=== PATIENT | male | born 1970 | race Caucasian/White ===

== ENCOUNTER → 2016-08-03 | Outpatient (CLI) | payer BC ==
[2016-08-03 11:29] LABS: ALT/SGPT 39 U/L (12-78); AST/SGOT 21 U/L (15-37); BLOOD UREA NITROGEN 20 mg/dl (7-18); CALCIUM 8.7 mg/dl (8.5-10.1); CARBON DIOXIDE 29 mmol/L (21-32); CHLORIDE 105 mmol/L (98-107); CHOLESTEROL 199 mg/dl (0-200); GLUCOSE 110 mg/dl (70-99); POTASSIUM 3.8 mmol/L (3.5-5.1); SODIUM 141 mmol/L (136-145)
[2016-08-03 11:32] LABS: ALB/GLOB RATIO 1.4 (0.9-2); ALKALINE PHOSPHATASE 48 U/L (45-117); CHOLESTEROL/HDL RATIO 5.4; HDL CHOLESTEROL 37 mg/dl; LDL CHOLESTEROL CALCULATED 122 mg/dl; TRIGLYCERIDES 198 mg/dl (0-150); VERY LOW DENSITY LIPOPROT CALC 40 mg/dl
== END | disposition home or self-care (01) ==
LOC: C.LABBC 08:28
PROVIDERS: ATTEND Family Medicine
DX: Z13.220 Encounter for screening for lipoid disorders (principal); I10 Essential (primary) hypertension

== ENCOUNTER → 2016-09-25 | Outpatient (CLI) | payer BC ==
[~2016-09-25] VITALS: Ht 180.3 cm; Wt 125.4 kg
[2016-09-25 15:08] VITALS: BP 150/83; PULSE 77; Ht 180.3 cm; Wt 125.4 kg
== END | disposition home or self-care (01) ==
LOC: C.NEUR 14:36
PROVIDERS: ATTEND Internal Medicine Pulmonary Disease
DX: R53.83 Other fatigue (principal); R06.83 Snoring; G47.9 Sleep disorder, unspecified

== ENCOUNTER → 2016-10-08 | Outpatient (CLI) | payer BC ==
--- NOTE | 2016-10-13 15:12 | POLYSOMNOGRAPH REPORT ---
CLINICAL DATA: A 45-year-old male with BMI of 38.[address] Smith and Dr. Anthony with symptoms of sleep apnea including loud snoring, fragmented sleep architecture, excessive daytime sleepiness and a crowded airway. On the evening of 10/08/2016, a home sleep apnea test was performed using a Maximus type 3 monitor. RECORDING RESULTS: Total recording time was 10 hours. The patient's estimated sleep time and patient monitoring time was 8 hours. RESPIRATORY DATA: Moderate sleep apnea was documented. The STACI was 27.3. There were 18 obstructive and 16 mixed apneic episodes. There were 114 hypopneic episodes. The longest respiratory event was 45 seconds. OXIMETRY DATA: Very transient nocturnal hypoxemia was seen. Oxygen charles was 86%. Mean saturation was 94%. Time below 89% was 2 minutes. HEART RATE DATA: Heart rates ranged from 42 to 54 beats per minute. SNORING DATA: Snoring was recorded throughout the night. IMPRESSION: Moderate sleep apnea/hypopnea with an STACI of 27.3. RECOMMENDATIONS: The patient may benefit from use of an oral appliance or repeat sleep study with CPAP. Clinical correlation is needed. ALEXID
== END | disposition home or self-care (01) ==
LOC: C.NEUR 11:03
PROVIDERS: ATTEND Internal Medicine Pulmonary Disease
DX: G47.30 Sleep apnea, unspecified (principal); R53.83 Other fatigue; R06.83 Snoring

== ENCOUNTER → 2016-10-16 | Outpatient (CLI) | payer BC ==
[~2016-10-16] VITALS: Ht 180.3 cm; Wt 122.7 kg
[2016-10-16 15:33] VITALS: BP 144/80; PULSE 75; Ht 180.3 cm; Wt 122.7 kg
== END | disposition home or self-care (01) ==
LOC: C.NEUR 13:48
PROVIDERS: ATTEND Internal Medicine Pulmonary Disease
DX: G47.33 Obstructive sleep apnea (adult) (pediatric) (principal); G47.9 Sleep disorder, unspecified; R53.83 Other fatigue